=== PATIENT | male | born 1945 | race Caucasian/White ===

== ENCOUNTER → 2017-03-20 | Outpatient (CLI) | payer OTHER ==
[~2017-03-20] MED LIST: ASPEC81 PO; ATOR-26 PO; GLC500 PO; LEVO75TA33 PO; LISI-725 PO; NRV/5 PO; OMEP40CA PO; TRAM-10 PO
--- NOTE | 2017-03-20 10:01 | DIAGNOSTIC IMAGING REPORT ---
MRI OF THE LUMBAR SPINE WITHOUT IV CONTRAST CLINICAL HISTORY: Osteoarthritis of the spine. Lumbar radiculopathy. COMPARISON STUDY: No priors. TECHNIQUE: MRI of the lumbar spine is performed utilizing various T1 and T2-weighted sequences in the axial and sagittal planes. IV contrast was not administered for this examination. FINDINGS: Lumbar spine: Vertebral body height is maintained throughout the lumbar spine. There is 6 mm of anterolisthesis at L5-S1. Alignment is otherwise preserved. Degenerative endplate change and sclerosis is seen at L2-L3. Mild endplate edema is observed. Schmorl's nodes are noted. Tiny anterior osteophytes are seen in the lower lumbar region. The transverse and spinous processes are intact as visualized. No destructive bony lesion or marrow replacement process is identified. Intervertebral discs: There is degenerative disc desiccation and loss of height seen throughout the lumbar spine. Loss of height is moderate at L2-L3 and L4-L5. Spinal cord: The partially imaged spinal cord is normal in morphology and signal intensity. The conus medullaris terminates at the level of L1. The nerve roots of the cauda equina are normal in morphology. L1-L2: Unremarkable. L2-L3: There is posterior disc bulge with annular fissure. There is no significant acquired compromise of the central canal at this level. Facet arthropathy is of no consequence. There is no significant neural foraminal narrowing. Facet joint effusions are identified. L3-L4: There is broad-based posterior disc bulge. There is minimal acquired compromise of the central canal at this level. The minimum AP diameter measures 8.5 mm. There is bilateral subarticular stenosis. The disc bulge abuts the transiting L4 nerve roots and may abut the exiting left L3 nerve root. Facet arthropathy is of no consequence. The neural foramina are patent. A left facet joint effusion is identified. L4-L5: There is a disc herniation eccentric to the right. This causes moderate right-sided central canal stenosis. The minimum AP diameter measures 4 mm. This impinges on the transiting right-sided nerve roots. There is right-sided subarticular stenosis, with probable impingement on the exiting right L4 nerve root. Facet arthropathy causes mild bilateral neural foraminal stenosis. There are bilateral facet joint effusions at this level. L5-S1: There is no acquired compromise the central canal. Facet arthropathy causes mild left neural foraminal stenosis. There are small facet joint effusions. The neural foramina are patent. Sacrum: Visualized sacrum is normal in morphology and signal intensity. A hemangioma is incidentally noted in the body of S2. Soft tissues: There is mild fatty atrophy of the paraspinous musculature. The partially imaged retroperitoneal structures are grossly normal. IMPRESSION: 1. There is a large disc herniation eccentric to the right at L4-L5. This impinges on the transiting right-sided nerve roots as well as the exiting right L4 nerve root. 2. Multilevel lumbosacral spondylosis at additional levels as above. See discussion for detailed level by level analysis. 3. Advanced degenerative endplate change is noted at L2-L3. Dictated: 03/20/2017 9:02 AM Transcribed: 03/20/2017 10:00 AM [email or web address] Electronically signed by: Jonathan Buckner M.D. 03/20/2017 10:23 AM Dictated Date/Time: 03/20/2017 9:02 AM
== END | disposition home or self-care (01) ==
LOC: C.MRIBC 08:05
PROVIDERS: ATTEND Internal Medicine
DX: M47.27 Other spondylosis with radiculopathy, lumbosacral region (principal); M51.26 Other intervertebral disc displacement, lumbar region